=== PATIENT | female | born 1955 | race Caucasian/White ===

== ENCOUNTER → 2023-10-18 14:34 | Outpatient (REF) | payer MEDICARE, OTHER, SELFPAY | LOC: DHCBS HW 14:34 | PROVIDERS: ATTENDING PHYSICIAN Internal Medicine Cardiovascular Disease; FAMILY PHYSICIAN Family Medicine | DX: I51.7 Cardiomegaly (principal); G47.39 Other sleep apnea | CPT/HCPCS: 93306; 93320 ==

== ENCOUNTER → 2024-01-14 13:36 | Outpatient (REF) | payer MEDICARE, OTHER, SELFPAY | LOC: WDC 13:36 | PROVIDERS: ATTENDING PHYSICIAN Family Medicine | DX: Z12.31 Encounter for screening mammogram for malignant neoplasm of breast (principal) | CPT/HCPCS: 77063; 77067 ==

== ENCOUNTER 2024-02-09 11:54 | Emergency (ER) | payer MEDICARE, OTHER, SELFPAY ==
[2024-02-09 12:01] VITALS: BP 157/85
[2024-02-09] MEDS: BENADRYL 50 MG IV (14:20)
[2024-02-09] MEDS: DECADRON 10 MG IV (14:21)
[2024-02-09] MEDS: DUONEB 3 ML INH (14:24)
[2024-02-09] MEDS: PEPCID 20 MG IV (14:24)
[2024-02-09 14:29] VITALS: BP 155/141
[2024-02-09] MEDS: ADRENALIN 0.299999999999999989 MG IM (14:56)
--- NOTE | 2024-02-09 15:11 | ED.GENMED ---
History of Present Illness
<Jeremiah Constantino MD - Last Filed: 02/09/24 15:13>
General
Chief Complaint: Allergic Reaction
Time Seen by Provider: 02/09/24 13:49
Travel History
Have you had any contact with someone who has COVID-19?: No
Do you have any symptoms of coronavirus? Fever > 100 degrees, chills, cough, shortness of breath, sore throat, loss of taste or smell, muscle aches, or headache?: No
<Lani Hooper PA-C - Last Filed: 02/09/24 20:45>
General
Source: patient and physician
Exam Limitations: none
Nursing documentation reviewed up to this point in time: agreed with
History of Present Illness
History of Present Illness:
Patient is a 68-year-old female with past medical history of hyperlipidemia, asthma, GERD, who presents to the emergency department for evaluation of facial swelling. Patient reports that she woke up this morning and looked in the mirror and
noticed that her face was swollen. She reports that her eyes were swollen and were nearly shut. Patient reports that she went to her primary care provider's office and they were initially going to prescribe her steroids but then became concerned
and decided to bring her to the emergency department for further evaluation. Patient reports that her tongue and the back of her throat does feel a little itchy. Patient denies any difficulty swallowing. Patient denies any shortness of breath,
wheezing, difficulty breathing. Patient denies chest pain, abdominal pain, nausea, vomiting. Patient denies taking any medication for her symptoms today. Patient reports that she did 1 have one previous similar episode several years ago and no
etiology was ever found. Patient reports that her symptoms were more severe at that time and she did receive epinephrine. Patient reports that she does have an EpiPen at home but did not feel the need to use it today. Patient reports that the
only new thing that she can think that she was exposed to was Liquid Fence that she was using yesterday without any gloves or mask. Patient denies any new foods, medications, soaps, lotions, detergents.
Past History
<Lani Hooper PA-C - Last Filed: 02/09/24 20:45>
Past History
ED Past Medical History: Asthma, GERD, Hypercholesterolemia and Other (SEKOU)
ED Past Surgical History: Appendectomy and Tonsilectomy
Social History
Tobacco: Non-smoker
Alcohol: Occasional
Drug: None
Review of Systems
<Lani Hooper PA-C - Last Filed: 02/09/24 20:45>
Review of Systems
Allergies reviewed?: Yes
All Other Systems: ROS reviewed and negative except as documented in HPI and ROS
Constitutional: Reports no symptoms
EENT: Reports other (facial swelling, tongue itching)
Respiratory: Reports no symptoms; Denies trouble breathing
Cardiac: Reports no symptoms
ABD/GI: Reports no symptoms
: Reports no symptoms
Musculoskeletal: Reports no symptoms
Skin: Reports no symptoms
Neurological: Reports no symptoms
Endocrine: Reports no symptoms
Hematologic/Lymphatic: Reports no symptoms
Psychiatric: Reports no symptoms
Phy Exam
<Lani Hooper PA-C - Last Filed: 02/09/24 20:45>
General Physical Exam
General Presentation: well appearing and no apparent distress
General Skin: warm, dry and other (face is edematous, no lip or tongue swelling)
General Habitus: normal
General Mental: alert
General Hydration: appears well hydrated
ENT Exam
ENT Exam: EOMI, pharynx normal, neck supple and normocephalic
Eye Exam
Eye Exam: PERRL, cornea clear and conjunctiva normal
Cardiovascular Exam
Cardiovascular Exam: regular rate/rhythm, no edema, no murmur and normal peripheral pulses
Pulmonary Exam
Pulmonary Exam: lungs clear, no respiratory distress, no rales, no crackles, no rhonchi, no stridor, no wheezing and no cough
Gastrointestinal Exam
Gastrointestinal Exam: normal bowel sounds, non tender, soft, no organomegaly, no pulsatile mass and non distended
Neurological Exam
Neurological Exam: alert, oriented x3, no motor deficits and speech normal
Musculoskeletal Exam
Musculoskeletal Exam: full ROM and no edema
Skin Exam
Skin Exam: normal color, warm/dry, no rash and no petechia
Psychiatric Exam
Psychiatric Exam: normal mood/affect
Course
<Jeremiah Constantino MD - Last Filed: 02/09/24 15:13>
Orders/Labs/Results
Orders:
Orders
02/09/24 14:04
Dexamethasone Sod Phosphate [Decadron] 10 mg IV NOW STA
Diphenhydramine [Benadryl] 50 mg IV NOW STA
Famotidine [Pepcid] 20 mg IV NOW STA
Ipratropium/Albuterol Sulfate [Duoneb] 3 ml INH R NOW STA
02/09/24 14:33
EPINEPHrine PF [Adrenalin] 0.3 mg IM NOW STA
02/09/24 20:36
Acetaminophen [Tylenol] 650 mg PO NOW STA
Lidocaine [Lidocaine 4% Patch] 1 patch TOPICAL ONCE STA
Morphine Sulfate 2 mg IV NOW STA
Lumbar Spine, 2 or 3 View [CR Lumbar Spine 2 Or 3 Views] Urgent
Comment:
Reason For Exam: acute onset low back pain
02/09/24 20:37
Basic Metabolic Panel Urgent
Complete Blood Count/With Diff Urgent
Vital Signs
Initial and Last Documented VS:
Initial Vital Signs
Temp Pulse Resp BP Pulse Ox
98.2 F 64 18 157/85 99
02/09/24 12:01 02/09/24 12:01 02/09/24 12:01 02/09/24 12:01 02/09/24 12:01
Last Documented Vital Signs
Temp Pulse Resp BP Pulse Ox
98.2 F 64 18 124/69 96
02/09/24 12:01 02/09/24 12:01 02/09/24 12:02/09/24 17:00 02/09/24 18:00
<Lani Hooper PA-C - Last Filed: 02/09/24 20:45>
Orders/Labs/Results
Orders:
Orders
02/09/24 14:04
Dexamethasone Sod Phosphate [Decadron] 10 mg IV NOW STA
Diphenhydramine [Benadryl] 50 mg IV NOW STA
Famotidine [Pepcid] 20 mg IV NOW STA
Ipratropium/Albuterol Sulfate [Duoneb] 3 ml INH R NOW STA
02/09/24 14:33
EPINEPHrine PF [Adrenalin] 0.3 mg IM NOW STA
02/09/24 20:36
Acetaminophen [Tylenol] 650 mg PO NOW STA
Lidocaine [Lidocaine 4% Patch] 1 patch TOPICAL ONCE STA
Morphine Sulfate 2 mg IV NOW STA
Lumbar Spine, 2 or 3 View [CR Lumbar Spine 2 Or 3 Views] Urgent
Comment:
Reason For Exam: acute onset low back pain
02/09/24 20:37
Basic Metabolic Panel Urgent
Complete Blood Count/With Diff Urgent
Vital Signs
Initial and Last Documented VS:
Initial Vital Signs
Temp Pulse Resp BP Pulse Ox
98.2 F 64 18 157/85 99
02/09/24 12:01 02/09/24 12:01 02/09/24 12:01 02/09/24 12:01 02/09/24 12:01
Last Documented Vital Signs
Temp Pulse Resp BP Pulse Ox
98.2 F 64 18 124/69 96
02/09/24 12:01 02/09/24 12:01 02/09/24 12:01 02/09/24 17:00 02/09/24 18:00
<Lani Hooper PA-C - Last Filed: 02/09/24 20:45>
MDM/Problems Addressed
Differential Diagnosis Includes:
allergic reaction, anaphylaxis
<Lani Hooper PA-C - Last Filed: 02/09/24 20:45>
*Critical Care Note
Total Time (30-74mins, 75-104mins- exclusive of procedures): Not Applicable
<Lani Hooper PA-C - Last Filed: 02/09/24 20:45>
Update Note
Update Note:
Patient is a 68-year-old female who presents to the emergency department for evaluation of facial swelling that she noticed when she woke up this morning. Patient reports that her tongue and the back of her throat does feel a little itchy however
she denies any difficulty swallowing, denies any shortness of breath or difficulty breathing, denies any GI symptoms. On arrival, patient's vital signs are stable, she is afebrile. On exam, patient is well-appearing, she is in no acute distress,
she does have evidence of facial swelling however she has no lip or tongue swelling, she is tolerating oral secretions without difficulty, her lungs are clear to auscultation bilaterally, she has a benign abdomen. Patient initially given
dexamethasone, famotidine, Benadryl. Case was discussed with ED attending and decision was made to give epinephrine as well. Patient was monitored for approximately 4 hours. Patient's swelling improved and she continued to feel well. Patient is
safe for discharge to home with a new prescription for EpiPen as hers has . Patient educated on the need for outpatient follow-up, supportive care measures, along with strict return precautions. She expressed understanding of the plan and
agreed.
ED Attending Note
<Jeremiah Constantino MD - Last Filed: 02/09/24 15:13>
ED Attending Note
Patient seen and examined by attending physician: Yes
ED Attending Note:
I have seen and evaluated the patient with a [id number] encounter. I have spoken to the advance practicer provider and involved in the medical history, the physical exam, medical decision making.
Evaluation and management service: agree unless noted differently below.
Results interpretation: agree unless noted differently below.
Focused HPI: 68-year-old female with history as documented presents for evaluation with concern for an allergic reaction�sent in by her PCP. Patient reports that she was outside working yesterday was using some chemicals in the yard. This morning
when she woke up she had redness and puffiness of her eyes and face. She says she had sensation of tingling on her tongue. She said she felt some mild shortness of breath and wheezing. She denies any abdominal pain, nausea, vomiting. She went to
her primary doctor's office and was sent to the emergency room with concern for allergic reaction. Patient has had anaphylaxis before from [employer] or and has an EpiPen but did not use it. She denies any unusual food intake or new medications or
other exposures aside from the chemicals she was using last night in the yard.
Physical exam: Awake alert not in distress. Hypertensive but otherwise normal vitals. She has no objective swelling of the tongue or uvula. She has no lip swelling but does have some puffiness around the eyes and cheeks bilaterally. No hives
noted. She has very faint expiratory wheeze. She has a soft nontender abdomen.
Medical Decision Making: Patient presents with concern for allergic reaction with symptoms as above. She does report some slight tingling of the tongue as well as some facial puffiness on the lips and tongue do not objectively appear swollen and
airway appears to be intact. Will treat with IM epinephrine, steroids, albuterol, antihistamines. Will monitor in the emergency room and reassess.
-
Portions of this chart may have been created with voice recognition software.� Occasional wrong word or��sound alike� substitutions may have occurred due to the inherent limitations of voice recognition software.
Discharge Plan
Departure
Patient Disposition: Home (Routine Discharge)
Date of Disposition: 02/09/24
Time of Disposition: 18:16
Patient with high blood pressure during this ER visit?: Yes
Condition: Good
Covid-19: Not Applicable
Discharge Problem:
Anaphylaxis
Instructions: Anaphylaxis - Discharge instructions
Prescriptions:
New
epinephrine [EpiPen 2-Conrad] 0.3 mg/0.3 mL auto-injector
0.3 mg IM Q5-15M PRN (Reason: anaphylaxis) Qty: 2 0RF
No Action
levothyroxine 75 MCG tablet
75 mcg PO DAILY
pantoprazole 40 MG tablet,delayed release (DR/EC)
40 mg PO BID
Patient Comments:
pt does not know dose
aspirin 81 MG tablet,chewable
81 mg PO DAILY
albuterol sulfate 1 PUFF HFA aerosol inhaler
2 puff inhalation R Q4HPRN PRN (Reason: wheezing)
Bifidobacterium infantis [Align] 4 MG capsule
4 mg PO DAILY
fbhditrxtxtv-ouup-xckvy acid [Centrum Women] 1 EACH tablet
1 ea PO DAILY
acetaminophen [Tylenol Extra Strength] 500 MG tablet
1,000 mg PO Q6HPRN PRN (Reason: mild pain) Qty: 1 0RF
ibuprofen 200 MG tablet
400 - 600 mg PO Q6HPRN PRN (Reason: moderate pain) Qty: 1 0RF
oxycodone 5 MG tablet
5 mg PO Q4HPRN PRN (Reason: breakthrough/severe pain) Qty: 7 0RF
Referrals:
Dino Almendarez MD [Family Provider] -
Activity Restrictions/Additional Instructions:
You were seen in the emergency department for evaluation following an allergic reaction. While you were in the emergency department you were given medication including epinephrine. You felt better and are safe to be discharged home. You are being
prescribed an new 2 pack of epinephrine to use if needed. If you do need to use your EpiPen, you need to return to the emergency department immediately. Please return to the emergency department if develop increasing lip tongue or throat swelling,
if you difficulty swallowing, shortness of breath or difficulty breathing, dyspnea or abdominal pain, if you have persistent vomiting, or for any other worsening or concerning symptoms.
Interventions
Interventions:
*Risk Screen - Suicide Last Done: 02/09/24 12:01
*General Assessment Last Done: 02/09/24 12:01
*Neglect/Abuse Screening Last Done: 02/09/24 12:01
ED- Fall Risk Assessment Last Done: 02/09/24 18:29
*ED COVID-19 Vaccine History Last Done: 02/09/24 15:18
*Nursing Disposition Last Done: 02/09/24 18:29
ED- Cardiac Assessment Last Done: 02/09/24 15:16
ED- Pulmonary Assessment Last Done: 02/09/24 15:16
ED-Skin Assessment Last Done: 02/09/24 15:18
Discharge Date and Time
Discharge Date/Time: 02/09/24 18:30
Print Language: [id number]
[2024-02-09 16:03] VITALS: BP 118/99
[2024-02-09 17:00] VITALS: BP 124/69
== END 2024-02-09 18:30 | disposition home or self-care (01) ==
LOC: EMR 11:54
PROVIDERS: EMERGENCY PHYSICIAN Emergency Medicine; FAMILY PHYSICIAN Family Medicine
DX: T78.2XXA Anaphylactic shock, unspecified, initial encounter (principal); X58.XXXA Exposure to other specified factors, initial encounter; R03.0 Elevated blood-pressure reading, without diagnosis of hypertension; E78.00 Pure hypercholesterolemia, unspecified; J45.909 Unspecified asthma, uncomplicated; K21.9 Gastro-esophageal reflux disease without esophagitis
CPT/HCPCS: 99284; 96374; 96375 ×2; 96372; 94640

== ENCOUNTER → 2024-03-28 06:01 | Day surgery (SDC) | payer MEDICARE, OTHER, SELFPAY | LOC: GI 06:01 | PROVIDERS: ATTENDING PHYSICIAN Internal Medicine Gastroenterology | DX: K22.89 Other specified disease of esophagus (principal); K44.9 Diaphragmatic hernia without obstruction or gangrene; K31.89 Other diseases of stomach and duodenum; R13.10 Dysphagia, unspecified; K29.80 Duodenitis without bleeding; K31.A0 Gastric intestinal metaplasia, unspecified; K20.0 Eosinophilic esophagitis | CPT/HCPCS: 43239; 88305 ==

== ENCOUNTER → 2024-04-24 07:09 | Outpatient (REF) | payer MEDICARE, OTHER, SELFPAY | LOC: MRI 3T 07:09 | PROVIDERS: ATTENDING PHYSICIAN Orthopaedic Surgery; FAMILY PHYSICIAN Family Medicine | DX: M17.12 Unilateral primary osteoarthritis, left knee (principal); M25.462 Effusion, left knee | CPT/HCPCS: 73721 ==

== ENCOUNTER 2024-09-30 06:24 | Day surgery (SDC) | payer MEDICARE, OTHER, SELFPAY | END 2024-09-30 11:24 | disposition home or self-care (01) | LOC: GI 06:24 | PROVIDERS: ATTENDING PHYSICIAN Internal Medicine Gastroenterology; FAMILY PHYSICIAN Family Medicine | DX: Z12.11 Encounter for screening for malignant neoplasm of colon (principal); K64.8 Other hemorrhoids; D12.3 Benign neoplasm of transverse colon; D12.4 Benign neoplasm of descending colon; K63.5 Polyp of colon; K44.9 Diaphragmatic hernia without obstruction or gangrene; K20.0 Eosinophilic esophagitis; Z86.0101 Personal history of adenomatous and serrated colon polyps; Z80.0 Family history of malignant neoplasm of digestive organs | CPT/HCPCS: 45380; 43239; 88305 ==

== ENCOUNTER → 2025-01-14 14:02 | Outpatient (REF) | payer MEDICARE, OTHER, SELFPAY | LOC: WDC 14:02 | PROVIDERS: ATTENDING PHYSICIAN Family Medicine | DX: Z12.31 Encounter for screening mammogram for malignant neoplasm of breast (principal) | CPT/HCPCS: 77063; 77067 ==

== ENCOUNTER 2025-05-30 12:07 | Emergency (ER) | payer MEDICARE, OTHER, SELFPAY ==
[2025-05-30 12:09] VITALS: BP 138/101
[2025-05-30 12:30] LABS: Hematocrit 44.6 % (37.0-47.0); Hemoglobin 15.4 g/dL (12.0-16.0); Mean Corp Hgb Conc. 34.5 g/dL (33.0-37.0); Mean Corpuscular Volume 89.6 fL (81.0-99.0); Nucleated Red Blood Cells % 0 %; Platelet Count 270 10^3/uL (130-400); Red Cell Dist. Width 12.7 % (11.5-14.5)
[2025-05-30 12:55] LABS: ALT (SGPT) 18 U/L (0-35); AST (SGOT) 24 U/L (14-36); Albumin 4.3 g/dl (3.5-5.0); Alkaline Phosphatase 82 U/L (38-126); Blood Urea Nitrogen 10 mg/dl (7-17); Calcium 9.5 mg/dl (8.4-10.2); Carbon Dioxide 25 mmol/L (22-30); Chloride 108 mmol/L (98-107); Glucose 102 mg/dl (70-99); Potassium 4.0 mmol/L (3.5-5.1); Sodium 138 mmol/L (135-145); Total Protein 6.5 g/dl (6.3-8.2); eGFR > 60.00
[2025-05-30 13:07] LABS: Troponin I < 0.012 ng/ml
[2025-05-30 14:00] VITALS: BP 135/88
--- NOTE | 2025-05-30 14:11 | ED.GENMED ---
History of Present Illness
General
Chief Complaint: Chest Problem
Time Seen by Provider: 05/30/25 13:52
Nursing documentation reviewed up to this point in time: agreed with
History of Present Illness
History of Present Illness:
69-year-old female presents the ER for evaluation of abnormal EKG. Patient saw her primary care physician this morning because of increased postnasal drip and concern for possible sinusitis. She denies fevers or chills. She has occasionally been
coughing and using her inhaler more frequently due to feeling of congestion in the chest. Patient has been undergoing recent treatment with her ENT for right eustachian tubes which had recently been removed and replaced. She has also been
experiencing some pain in her neck which has been making it difficult for sleeping-her neck pain has been present for over the last month. She has been trying Mobic and 81 mg aspirin with no improvement in her neck discomfort. She states that on
Sunday she had noted a feeling of tightness in her chest that radiated to her jaw and right upper extremity and made her feel slightly short of breath. Symptoms lasted for a few hours and then resolved. She has not had any recurrence of this
symptom of tightness radiating to her jaw. She has been at her usual level of activity. Eating and drinking normally. No vomiting or diarrhea. She has no prior personal history of ACS. She has been under the care of Dr. Landa but has not
seen her for the symptoms. She does take medications for hyper lipidemia. She is a former smoker. She reports feeling well at time of evaluation other than some mild postnasal drip. She did receive the flu vaccine yesterday.
Past History
Past History
ED Past Medical History: Asthma, GERD, Hypercholesterolemia and Other (SEKOU)
ED Past Surgical History: Appendectomy and Tonsilectomy
Social History
Tobacco: Non-smoker
Alcohol: Occasional
Drug: None
Review of Systems
Review of Systems
Allergies reviewed?: Yes
Phy Exam
Physical Exam
Physical Exam:
Patient is awake, alert, appears in no acute distress, head is NCAT, PERRL, EOMI mucous membranes moist, conjunctiva pink, moving neck in all directions spontaneously without apparent limitation, significant paraspinal hypertonicity noted throughout
mid para thoracic musculature, moderate hypertonicity noted in right trapezius compared to left trapezius, no overlying skin change, no midline pain on palpation of thoracic spine, no abnormal chest wall excursion, no rash, heart regular rate and
rhythm without murmurs or ectopy, lungs are clear to auscultation without wheezes rales or rhonchi, no JVD, abdomen is soft and nontender on palpation, extremities without edema, 2+ DP pulses present symmetric bilateral feet, GCS is 15
Course
Orders/Labs/Results
Orders:
Orders
05/30/25 12:10
EKG [Electrocardiogram (*1)] Urgent
Reason for Study: Chest Pain
EKG- Treatment ONCE
05/30/25 12:22
Complete Blood Count/With Diff Urgent
Comprehensive Metabolic Panel Urgent
Troponin I Urgent
05/30/25 14:07
Ipratropium/Albuterol Sulfate [Duoneb] 3 ml INH R NOW ONE
05/30/25 14:08
CR Chest - 2 Views Urgent
Comment:
Reason For Exam: chest pain
05/30/25 14:25
COVID-19 Antigen Urgent
Source: Nasal Swab
Troponin I Urgent
Abnormal Lab Results
05/30/25
12:22
Lymphocytes % 17.8 L %
(20.5-51.1)
Chloride 108 H mmol/L
(98-107)
Glucose 102 H mg/dl
(70-99)
05/30/25 12:22
05/30/25 12:22
Labs are very reassuring, including troponin which was negative.
Repeated troponin negative.
Vital Signs
Initial and Last Documented VS:
Initial Vital Signs
Temp Pulse Resp BP Pulse Ox
98.5 F 101 18 138/101 98
05/30/25 12:09 05/30/25 12:09 05/30/25 12:09 05/30/25 12:09 05/30/25 12:09
Last Documented Vital Signs
Temp Pulse Resp BP Pulse Ox
98.5 F 83 18 126/83 100
05/30/25 12:09 05/30/25 17:01 05/30/25 17:01 05/30/25 17:01 05/30/25 17:01
MDM/Problems Addressed
Differential Diagnosis Includes:
Differential diagnosis to consider but not limited to ACS, COVID, pneumonia, muscle spasm along with other etiologies considered
Chronic conditions affecting care:
Allergic rhinitis, high cholesterol
*Radiology
Radiology exam reviewed: preliminary read by ED provider (I independently viewed and interpreted two-view chest x-ray showing no acute process, clear lungs)
*Pulse Oximetry
SaO2: 98
Oxygen Mode of Delivery: Room air
Patient hypoxic: no
*EKG
Interpreted by ED Provider?: Yes (I independently viewed and interpreted twelve-lead EKG showing normal sinus rhythm, rate 92, normal axis, inferior Q waves, no ST elevations, this is a borderline EKG without evidence for acute ischemia, no prior
for comparison)
*International Specialist Interpretation
Rate: normal (I independently viewed and interpreted twelve-lead EKG showing normal sinus rhythm, no ectopy)
*Critical Care Note
Total Time (30-74mins, 75-104mins- exclusive of procedures): Not Applicable
Data Reviewed
Review of Other/Old Records Reveals: Testing (I reviewed nuclear stress test report from 09/27/2020, Dr. Landa. Exercise tolerance was below average but there was no evidence for fixed or reversible defects. Gated images revealed an EF of 79%)
Update Note
Update Note:
Patient agrees with plan for chest x-ray and repeated troponin. Will also give breathing treatment as she feels some drainage in her throat-no wheezing on exam. Will reassess.
1644: Patient resting comfortably. No recurrence of pain while in the emergency department. I discussed with her very reassuring workup including negative chest x-ray and troponin x 2. I discussed with her addition of Tylenol as her symptoms may
be related more from cervical radiculopathy/DJD. I encouraged her to continue taking her 81 mg aspirin and to follow-up with her converter skimmer Sunday to schedule appointment for reevaluation and further care. Patient expressed understanding of
discharge plan and has no questions at the current time.
ED Attending Note
-
Portions of this chart may have been created with voice recognition software.� Occasional wrong word or��sound alike� substitutions may have occurred due to the inherent limitations of voice recognition software.
Discharge Plan
Departure
Patient Disposition: Home (Routine Discharge)
Date of Disposition: 05/30/25
Time of Disposition: 16:44
Patient with high blood pressure during this ER visit?: Yes
Discharge Problem:
Chest pain, Neck and shoulder pain
Instructions: Chest Pain DCA Follow Up, BLOOD PRESSURE
Prescriptions:
No Action
levothyroxine 75 MCG tablet
75 mcg PO DAILY
pantoprazole 40 MG tablet,delayed release (DR/EC)
40 mg PO BID
Patient Comments:
pt does not know dose
aspirin 81 MG tablet,chewable
81 mg PO DAILY
albuterol sulfate 1 PUFF HFA aerosol inhaler
2 puff inhalation R Q4HPRN PRN (Reason: wheezing)
Bifidobacterium infantis [Align (B.infantis)] 4 MG capsule
4 mg PO DAILY
hdmlkwbmrcjy-wotd-ywkps acid [Centrum Women] 1 EACH tablet
1 ea PO DAILY
acetaminophen [Tylenol Extra Strength] 500 MG tablet
1,000 mg PO Q6HPRN PRN (Reason: mild pain) Qty: 1 0RF
ibuprofen 200 MG tablet
400 - 600 mg PO Q6HPRN PRN (Reason: moderate pain) Qty: 1 0RF
oxycodone 5 MG tablet
5 mg PO Q4HPRN PRN (Reason: breakthrough/severe pain) Qty: 7 0RF
epinephrine [EpiPen 2-Conrad] 0.3 mg/0.3 mL auto-injector
0.3 mg IM Q5-15M PRN (Reason: anaphylaxis) Qty: 2 0RF
Referrals:
Harsh Tucker MD [Family Provider, Family Practice]
Estefani Landa MD [Active, Cardiology] - Next open appointment
Activity Restrictions/Additional Instructions:
Continue using 81 mg aspirin daily. Please try taking Tylenol extra strength is available [id number] as needed for your neck discomfort. Return to the ER for any concerns
Interventions
Interventions:
*Risk Screen - Suicide Last Done: 05/30/25 12:09
*General Assessment Last Done: 05/30/25 12:09
*Neglect/Abuse Screening Last Done: 05/30/25 12:09
*ED- Fall Risk Assessment Last Done: 05/30/25 12:09
*ED COVID-19 Vaccine History Last Done: 05/30/25 12:09
*Nursing Disposition Last Done: 05/30/25 17:01
ED- Cardiac Assessment Last Done: 05/30/25 14:32
ED- Pulmonary Assessment Last Done: 05/30/25 14:34
Discharge Date and Time
Discharge Date/Time: 05/30/25 17:02
Print Language: [email or web address]
[2025-05-30 14:29] VITALS: BMI 30.2
[2025-05-30] MEDS: DUONEB 3 ML INH (14:30)
[2025-05-30 14:56] LABS: COVID-19 Antigen Negative (Negative)
[2025-05-30 15:00] VITALS: BP 117/88
[2025-05-30 16:00] VITALS: BP 124/91
[2025-05-30 16:03] LABS: Troponin I < 0.012 ng/ml
[2025-05-30 17:01] VITALS: BP 126/83
== END 2025-05-30 17:02 | disposition home or self-care (01) ==
LOC: EMR 12:07
PROVIDERS: Student in an Organized Health Care Education/Training Program; EMERGENCY PHYSICIAN Emergency Medicine; FAMILY PHYSICIAN Family Medicine
DX: R07.89 Other chest pain (principal); M54.2 Cervicalgia; M25.511 Pain in right shoulder; R94.31 Abnormal electrocardiogram [ECG] [EKG]; R09.82 Postnasal drip; J45.909 Unspecified asthma, uncomplicated; K21.9 Gastro-esophageal reflux disease without esophagitis; E78.00 Pure hypercholesterolemia, unspecified; G47.33 Obstructive sleep apnea (adult) (pediatric); Z90.49 Acquired absence of other specified parts of digestive tract
CPT/HCPCS: 99283; 94640; 71046; 80053; 84484; 85025; 87811; 93005

== ENCOUNTER → 2025-06-05 07:05 | Outpatient (REF) | payer MEDICARE, OTHER, SELFPAY | LOC: RCS 07:05 | PROVIDERS: ATTENDING PHYSICIAN Internal Medicine Cardiovascular Disease; FAMILY PHYSICIAN Family Medicine | DX: I51.7 Cardiomegaly (principal) | CPT/HCPCS: 93306 ==

== ENCOUNTER → 2025-06-08 11:22 | Outpatient (REF) | payer MEDICARE, OTHER, SELFPAY | LOC: HWRCS 11:22 | PROVIDERS: ATTENDING PHYSICIAN Nurse Practitioner; FAMILY PHYSICIAN Family Medicine | DX: E78.5 Hyperlipidemia, unspecified (principal); R07.9 Chest pain, unspecified | CPT/HCPCS: 78452; 93017; A9500; J2785 ==